=== PATIENT | female | born 1990 | race Hispanic/Latino ===

== ENCOUNTER 2019-05-25 11:05 | Emergency (ER) | payer SELFPAY ==
[2019-05-25 11:15] VITALS: BP 145/51
--- NOTE | 2019-05-25 11:43 | Emergency Department Report ---
Chief Complaint: Extremity Problem,Nontraumatic Stated Complaint: RT FOOT PAIN Time Seen by Provider: 05/25/19 11:31 - HPI History of Present Illness: 29 y o female presents to ED asking for a second opinion regarding her heel spur on right heel as she was told by an orthopedic in [place] She states she just moved here and wants an orthopedist She states she was also told about a spot on her kidney and has had no follow up She denies dificulty walking or any other problems today - ROS Review of Systems: As noted in HPI - Exam Vital Signs: Vital Signs 05/25/19 11:14 Temperature 98.3 F Pulse Rate 71 Respiratory 16 Rate Blood Pressure 145/51 O2 Sat by Pulse 97 Oximetry Physical Exam: EXT: ambulatory, non tender bilaterally. no swelling GEN: aao x 3, no neuro deficit MSE screening note: Focused history and physical exam performed. Due to findings the following was ordered: ED Medical Decision Making - Medical Decision Making 29 y o female presenting for referrals for heel spur on right foot also requesting a Nehrologist She had no complaints today Referrals given to patient No neuro deficit VSS, no acute distress ED Disposition for MSE Clinical Impression: Foot pain, right Disposition: DC-01 TO HOME OR SELFCARE Is pt being admited?: No Does the pt Need Aspirin: No Condition: Stable Instructions: Arthralgia (ED) Additional Instructions: follow up with the orthopedic Follow up with mortgage accounting clerk Referrals: ANDREW MALONE MD [Primary Care Provider] - 3-5 Days TI GROSS MD [Staff Physician] - 3-5 Days [facility] [Provider Group] - 3-5 Days [facility] [Provider Group] - 3-5 Days Forms: Work/School Release Form(ED) Time of Disposition: 12:00
== END 2019-05-25 12:06 | disposition home or self-care (01) ==
LOC: ED 11:05
DX: M79.671 Pain in right foot (principal)
CPT/HCPCS: 99282

== ENCOUNTER 2019-05-31 09:34 | Emergency (ER) | payer SELFPAY ==
--- NOTE | 2019-05-31 10:49 | XRay Report ---
CHEST 2 VIEWS INDICATION / CLINICAL INFORMATION: cough and chest congestion. COMPARISON: None available. FINDINGS: SUPPORT DEVICES: None. HEART / MEDIASTINUM: No significant abnormality. LUNGS / PLEURA: No significant pulmonary or pleural abnormality. No pneumothorax. ADDITIONAL FINDINGS: No significant additional findings. IMPRESSION: 1. No acute findings. Signer Name: Florin Mason MD Signed: 05/31/2019 10:45 AM Workstation Name: [id number]
--- NOTE | 2019-05-31 11:40 | Emergency Department Report ---
ED ENT HPI - General Chief complaint: Upper Respiratory Infection Stated complaint: FLU LIKE SYMPTOMS Time Seen by Provider: 05/31/19 10:01 Source: patient Mode of arrival: Ambulatory Limitations: No Limitations, Altered Mental Status - History of Present Illness Initial comments: 29-year-old female since emergency department complaining of a 4 to five-day history of cough congestion coryza with clear mucus production and progressively worsening fashion. Reports no nausea vomiting, diarrhea, hemoptysis, hematemesis, hematochezia. Location: throat Severity: mild Consistency: constant Improves with: none Worsens with: none Associated Symptoms: cough. denies: pain with swallowing, tinnitus, discharge from ear - Related Data Previous Rx's Medication Instructions Recorded Last Taken Type ALBUTEROL Inhaler (OR & NICU) 1 puff IH Q4-6H PRN #1 inha 05/31/19 Unknown Rx [ProAir HFA Inhaler] Azithromycin [Zithromax] 500 mg PO QDAY #3 tablet 05/31/19 Unknown Rx guaiFENesin/CODEINE [Robitussin AC] 5 ml PO Q6H PRN #120 ml 05/31/19 Unknown Rx Allergies Allergy/AdvReac Type Severity Reaction Status Date / Time No Known Allergies Allergy Verified 05/31/19 09:40 ED Dental HPI - General Chief complaint: Upper Respiratory Infection Stated complaint: FLU LIKE SYMPTOMS Time Seen by Provider: 05/31/19 10:01 Source: patient Mode of arrival: Ambulatory Limitations: No Limitations - Related Data Previous Rx's Medication Instructions Recorded Last Taken Type ALBUTEROL Inhaler (OR & NICU) 1 puff IH Q4-6H PRN #1 inha 05/31/19 Unknown Rx [ProAir HFA Inhaler] Azithromycin [Zithromax] 500 mg PO QDAY #3 tablet 05/31/19 Unknown Rx guaiFENesin/CODEINE [Robitussin AC] 5 ml PO Q6H PRN #120 ml 05/31/19 Unknown Rx Allergies Allergy/AdvReac Type Severity Reaction Status Date / Time No Known Allergies Allergy Verified 05/31/19 09:40 ED Review of Systems ROS: Stated complaint: FLU LIKE SYMPTOMS Other details as noted in HPI Comment: All other systems reviewed and negative ED Past Medical Hx - Past Medical History Additional medical history: plantar flaciatis - Social History Smoking Status: Never Smoker Substance Use Type: None - Medications Home Medications: Home Medications Medication Instructions Recorded Confirmed Last Taken Type ALBUTEROL Inhaler (OR & NICU) 1 puff IH Q4-6H PRN #1 inha 05/31/19 Unknown Rx [ProAir HFA Inhaler] Azithromycin [Zithromax] 500 mg PO QDAY #3 tablet 05/31/19 Unknown Rx guaiFENesin/CODEINE [Robitussin AC] 5 ml PO Q6H PRN #120 ml 05/31/19 Unknown Rx ED Physical Exam - General Limitations: No Limitations General appearance: alert, in no apparent distress - Head Head exam: Present: atraumatic, normocephalic - Eye Eye exam: Present: normal appearance, PERRL, EOMI Pupils: Present: normal accommodation - ENT ENT exam: Present: normal exam, normal orophraynx, mucous membranes moist, TM's normal bilaterally - Neck Neck exam: Present: normal inspection - Respiratory Respiratory exam: Present: normal lung sounds bilaterally, rhonchi. Absent: respiratory distress - Cardiovascular Cardiovascular Exam: Present: regular rate, normal rhythm. Absent: systolic murmur, diastolic murmur, rubs, gallop - GI/Abdominal GI/Abdominal exam: Present: soft, normal bowel sounds - Extremities Exam Extremities exam: Present: normal inspection - Back Exam Back exam: Present: normal inspection - Neurological Exam Neurological exam: Present: alert, oriented X3 - Psychiatric Psychiatric exam: Present: normal affect, normal mood - Skin Skin exam: Present: warm, dry, intact, normal color. Absent: rash ED Medical Decision Making - Radiology Data Radiology results: report reviewed [address] [address] XRay Report Signed Patient: LINDA PERALTA MR#: [id number] : 1990 Acct:[id number] Age/Sex: 29 / F ADM Date: 05/31/19 Loc: ED Attending Dr: Ordering Physician: SARAH SKINNER Date of Service: 05/31/19 Procedure(s): XR chest routine 2V Accession Number(s): [id number] cc: SARAH SKINNER Fluoro Time In Minutes: CHEST 2 VIEWS INDICATION / CLINICAL INFORMATION: cough and chest congestion. COMPARISON: None available. FINDINGS: SUPPORT DEVICES: None. HEART / MEDIASTINUM: No significant abnormality. LUNGS / PLEURA: No significant pulmonary or pleural abnormality. No pneumothorax. ADDITIONAL FINDINGS: No significant additional findings. IMPRESSION: 1. No acute findings. Signer Name: Florin Mason MD Signed: 05/31/2019 10:45 AM Workstation Name: [id number] Transcribed By: Dictated By: Florin Mason MD Electronically Authenticated By: Florin Mason MD Signed Date/Time: 05/31/191044 DD/ 43 TD/TT: - Medical Decision Making 21-year-old female visits was department with a 4 to five-day history of productive cough congestion coryza. Chest x-ray was performed and found to be normal. Patient is a well-nourished or distress with normal saturation and ambulatory. No treatment was necessary while here in the emergency department however she will be discharged home with with cough suppressant bronchodilator and a short course of antibiotics and advised follow-up department and provided 2-3 days for reevaluation. This instructed to return to emergency much department should her condition worsen also been advised to call she is unsure of what to do - Differential Diagnosis Allergic rhinitis, mono, sinusitis, reflux laryngitis, otitis,bronchitis Critical care attestation.: If time is entered above; I have spent that time in minutes in the direct care of this critically ill patient, excluding procedure time. ED Disposition Clinical Impression: URI (upper respiratory infection), Cough Disposition: -01 TO HOME OR SELFCARE Is pt being admited?: No Does the pt Need Aspirin: No Condition: Stable Instructions: Upper Respiratory Infection (ED), Cold Symptoms (ED) Prescriptions: ALBUTEROL Inhaler (OR & NICU) [ProAir HFA Inhaler] 1 puff IH Q4-6H PRN #1 inha PRN Reason: Cough guaiFENesin/CODEINE [Robitussin AC] 5 ml PO Q6H PRN #120 ml PRN Reason: Cough Azithromycin [Zithromax] 500 mg PO QDAY #3 tablet Referrals: [facility] [Provider Group] - 2-3 Days
== END 2019-05-31 13:29 | disposition home or self-care (01) ==
LOC: ED 09:34
DX: J06.9 Acute upper respiratory infection, unspecified (principal); Z79.899 Other long term (current) drug therapy
CPT/HCPCS: 71046; 99283